=== PATIENT | female | born 1960 | race Caucasian/White ===

== ENCOUNTER 2019-03-30 21:21 | Emergency (ER) | payer BC, MEDICAID ==
[~2019-03-30] VITALS: Ht 162.6 cm; Wt 84.4 kg
--- NOTE | 2019-03-30 21:41 | NUR ---
Patient ambulated with stable gait. A/Ox4. Speech is clear, speaks in complete sentences. No neuro deficits noted. Patient came in for c/o left arm pain x 4 days, denies any trauma. Respiratory even and unlabored, no cough no sob. No cardiovascular distress noted. Patient in bed at lowest position, siderails upx2, call light within reach. Fall precautions implemented per protocol.
[2019-03-30] MEDS ORDERED: KETOROLAC TROMETHAMINE 30 MG INJ ONE (22:05)
[2019-03-30] MEDS ORDERED: KETOROLAC TROMETHAMINE 60 MG INJ IM ONE (22:15)
--- NOTE | 2019-03-30 22:15 | NUR ---
Patient discharged to home in stable conditon. Written and verbal after care instructions given. Patient verbalizes understanding of instructions. Patient ambulated with stable gait.
[2019-03-30 22:16] VITALS: BP 140/78
== END 2019-03-30 22:17 | disposition home or self-care (01) ==
LOC: ER 21:21
DX: M54.12 Radiculopathy, cervical region (principal); Z88.5 Allergy status to narcotic agent
CPT/HCPCS: 72040; 96372; 99283; J1885; A4663